=== PATIENT | male | born 1960 | race Caucasian/White ===

== ENCOUNTER 2020-09-18 11:22 | Emergency (ER) | payer SELFPAY ==
--- NOTE | 2020-09-18 11:25 | EDM.PDOC ---
ED HPI GENERAL MEDICAL PROBLEM - General Stated Complaint: BLADDER DRAIN Time Seen by Provider: 09/18/20 11:22 Source of Information: Reports: Patient History Limitations: Reports: No Limitations - History of Present Illness INITIAL COMMENTS - FREE TEXT/NARRATIVE: 59-year-old male presents from [facility] for urinary retention. Per report from Dr. Guzman, patient has noted decreased urination, dribbling, difficulty voiding x1 week. In the clinic he was noted to have a distended abdomen and a bladder scan showed greater than 1000 mL in the bladder. Rectal exam revealed a nodular enlarged prostate concerning for prostate cancer. Patient was sent to the emergency department for urinary retention. On my history, patient notes that he has not urinated and roughly 5 days. He has had a lot of dribbling urine and has been wearing depends diapers. He notes abdominal distention and a lot of pain, discomfort. He denies any fevers, nausea, vomiting. Back Pain Score (Numeric/FACES): 5 - Related Data Allergies Allergy/AdvReac Type Severity Reaction Status Date / Time No Known Allergies Allergy Verified 09/18/20 11:53 Home Meds: Home Meds . [No Known Home Meds] 04/09/18 [History] Past Medical History HEENT History: Reports: None Respiratory History: Reports: Asthma Gastrointestinal History: Reports: None Genitourinary History: Reports: None Musculoskeletal History: Reports: None Neurological History: Reports: None Psychiatric History: Reports: None Endocrine/Metabolic History: Reports: None Hematologic History: Reports: None Dermatologic History: Reports: None - Past Surgical History Male Surgical History: Reports: None Social & Family History - Family History Family Medical History: No Pertinent Family History ED ROS GENERAL - Review of Systems Review Of Systems: Comprehensive ROS is negative, except as noted in HPI. ED EXAM, GENERAL - Physical Exam Exam: See Below Exam Limited By: No Limitations General Appearance: Alert, WD/WN, No Apparent Distress Throat/Mouth: Normal Voice, No Airway Compromise, Perioral Cyanosis Head: Atraumatic Neck: Normal Inspection Respiratory/Chest: No Respiratory Distress, Lungs Clear, Normal Breath Sounds, No Accessory Muscle Use Cardiovascular: Normal Peripheral Pulses, Regular Rate, Rhythm GI/Abdominal: Other (distended, TTP consistent with distended bladder) Extremities: Normal Inspection Neurological: Alert Psychiatric: Normal Affect, Normal Mood Skin Exam: Warm, Dry, Intact, Normal Color Course - Vital Signs Last Recorded V/S: Last Vital Signs Temp 97.3 F 09/18/20 11:53 Pulse 70 09/18/20 11:53 Resp BP 188/80 H 09/18/20 11:53 Pulse Ox 96 09/18/20 11:53 - Orders/Labs/Meds Orders: Active Orders 24 hr Category Date Time Status Insert Simmons Catheter [Insert Urinary Catheter] [OM.PC] Care 09/18/20 11:30 Ordered Q24H Urinary Catheter Assessment [RC] ASDIRECTED Care 09/18/20 11:24 Active Labs: Laboratory Tests 09/18/20 09/18/20 09/18/20 Range/Units 11:55 12:15 12:15 WBC 12.34 H (4.0-11.0) K/uL RBC 4.59 (4.50-5.90) M/uL Hgb 14.3 (13.0-17.0) g/dL Hct 41.6 (38.0-50.0) % MCV 90.6 (80.0-98.0) fL MCH 31.2 (27.0-32.0) pg MCHC 34.4 (31.0-37.0) g/dL RDW Std Deviation 43.5 (28.0-62.0) fl RDW Coeff of Maxi 13 (11.0-15.0) % Plt Count 247 (150-400) K/uL MPV 10.10 (7.40-12.00) fL Neut % (Auto) 78.0 (48.0-80.0) % Lymph % (Auto) 11.5 L (16.0-40.0) % [place] % (Auto) 9.0 (0.0-15.0) % Eos % (Auto) 1.3 (0.0-7.0) % Baso % (Auto) 0.2 (0.0-1.5) % Neut # (Auto) 9.6 H (1.4-5.7) K/uL Lymph # (Auto) 1.4 (0.6-2.4) K/uL [place] # (Auto) 1.1 H (0.0-0.8) K/uL Eos # (Auto) 0.2 (0.0-0.7) K/uL Baso # (Auto) 0.0 (0.0-0.1) K/uL Nucleated RBC % 0.0 /100WBC Nucleated RBCs # 0 K/uL Sodium 139 (136-148) mmol/L Potassium 2.8 L (3.5-5.1) mmol/L Chloride 99 (98-107) mmol/L Carbon Dioxide 26.1 (21.0-32.0) mmol/L BUN 45 H (7.0-18.0) mg/dL Creatinine 2.0 H (0.8-1.3) mg/dL Est Cr Clr Drug Dosing 36.26 mL/min Estimated GFR (MDRD) 34.1 ml/min Glucose 117 H (74-106) mg/dL Calcium 8.7 (8.5-10.1) mg/dL Prostate Specific Ag 5.76 H (0.05-4.00) ng/mL Urine Color YELLOW Urine Appearance CLEAR Urine pH 5.5 (5.0-8.0) Ur Specific Cornish 1.020 (1.001-1.035) Urine Protein NEGATIVE (NEGATIVE) mg/dL Urine Glucose (UA) NEGATIVE (NEGATIVE) mg/dL Urine Ketones NEGATIVE (NEGATIVE) mg/dL Urine Occult Blood MODERATE H (NEGATIVE) Urine Nitrite NEGATIVE (NEGATIVE) Urine Bilirubin NEGATIVE (NEGATIVE) Urine Urobilinogen 0.2 (<2.0) EU/dL Ur Leukocyte Esterase TRACE H (NEGATIVE) Urine RBC 4-6 (0-2/HPF) Urine WBC 0-2 (0-5/HPF) Ur Epithelial Cells FEW (NONE-FEW) Amorphous Sediment LIGHT (NEGATIVE) Urine Bacteria FEW (NEGATIVE) Urine Mucus LIGHT (NONE-MOD) - Re-Assessments/Exams Free Text/Narrative Re-Assessment/Exam: 09/18/20 12:[address] Simmons catheter. Will check urinalysis, will check renal function. Will do a screening PSA but informed patient that he will need to follow-up with urologist for further work-up and to rule out prostate cancer. 09/18/20 12:24 Urine with positive leuk esterase but only 0-2 white blood cells, will defer antibiotics at this time although culture will be sent. Patient had large amount of drainage from Simmons catheter, drained 500 mL immediately and then the bag was clamped. Will drain the rest of the urine, follow-up blood labs. 09/18/20 13:15 Patient's labs reveal a creatinine of 2, otherwise unremarkable. PSA is mildly elevated. Will discharge patient with Simmons leg bag and follow-up with urology. Departure - Departure Time of Disposition: 13:16 Disposition: Home, Self-Care 01 Condition: Good Clinical Impression: Urinary retention - Discharge Information Instructions: Indwelling Urinary Catheter Care, Adult, Acute Urinary Retention, Male Referrals: Peter Valdes MD [Primary Care Provider] - Additional Instructions: You presented to the emergency department with urinary retention. A Simmons catheter was placed which will help to allow your bladder to drain. Most causes of urinary retention in men are caused by problems with the prostate gland. Usually this is due to benign prostatic hypertrophy or BPH which is enlargement of the prostate without evidence of cancer. Sometimes this can be caused by prostate cancer. You will need to follow-up with the urologist early next week to have the Simmons catheter removed and to be better evaluated for prostate cancer. A screening lab was sent for prostate cancer called a PSA level. All the labs done today are provided in your discharge paperwork and you should share these with the urologist when you follow-up. Your labs did not show evidence of a urinary tract infection however the urine will be sent for culturing in case there is a pathogen that is missed on our urinalysis test. The following information is given to patients seen in the emergency department who are being discharged to home. This information is to outline your options for follow-up care. We provide all patients seen in our emergency department with a follow-up referral. The need for follow-up, as well as the timing and circumstances, are variable depending upon the specifics of your emergency department visit. If you don't have a primary care physician on staff, we will provide you with a referral. We always advise you to contact your personal physician following an emergency department visit to inform them of the circumstance of the visit and for follow-up with them and/or the need for any referrals to a consulting specialist. The emergency department will also refer you to a specialist when appropriate. This referral assures that you have the opportunity for follow-up care with a specialist. All of these measure are taken in an effort to provide you with optimal care, which includes your follow-up. Under all circumstances we always encourage you to contact your private physician who remains a resource for coordinating your care. When calling for follow-up care, please make the office aware that this follow-up is from your recent emergency room visit. If for any reason you are refused follow-up, please contact the [facility] Emergency Department at and asked to speak to the emergency department charge nurse. Please follow up with your primary care physician. If you do not have a primary care physician, see below: [facility] [address] [place] [id number] [facility] [address] [place] [address] [facility] [address] [place] [address] Sepsis Event Note (ED) - Focused Exam Vital Signs: Vital Signs Temp Pulse BP Pulse Ox 09/18/20 11:53 97.3 F 70 188/80 H 96 - My Orders Last 24 Hours: My Active Orders 09/18/20 11:24 Urinary Catheter Assessment [RC] ASDIRECTED 09/18/20 11:30 Insert Simmons Catheter [Insert Urinary Catheter] [OM.PC] Q24H - Assessment/Plan Last 24 Hours: My Active Orders 09/18/20 11:24 Urinary Catheter Assessment [RC] ASDIRECTED 09/18/20 11:30 Insert Simmons Catheter [Insert Urinary Catheter] [OM.PC] Q24H
[2020-09-18 13:13] LABS: CARBON DIOXIDE,CO2 26.1 mmol/L (21.0-32.0); POTASSIUM,K 2.8 mmol/L (3.5-5.1)
== END 2020-09-18 13:43 | disposition home or self-care (01) ==
LOC: MW.ED 11:22
DX: R33.9 Retention of urine, unspecified (principal); J45.909 Unspecified asthma, uncomplicated
CPT/HCPCS: 36415; 51702; 80048; 81001; 84153; 85025; 99283; 99283-25

== ENCOUNTER 2021-06-16 19:36 | Emergency (ER) | payer SELFPAY ==
--- NOTE | 2021-06-16 20:27 | EDM.PDOC ---
ED HPI GENERAL MEDICAL PROBLEM - General Chief Complaint: Genitourinary Problem Stated Complaint: NEW CATHETER, BLOOD IN URINE Time Seen by Provider: 06/16/21 20:01 - History of Present Illness INITIAL COMMENTS - FREE TEXT/NARRATIVE: CHIEF COMPLAINT(S): Blood in urine HISTORY OF PRESENT ILLNESS: This is a 60-year-old man with a chronic Harrington catheter secondary to BPH who comes to the emergency department with a chief complaint of blood in urine. The patient states that he does not have any pain or fevers but yesterday he had his catheter changed at [facility] and since that time he has been draining blood. He states that it initially looked like tomato sauce and now it is turned into a wine color. He states that it has not cleared. He states that he feels like he has to go to the restroom but he cannot. He states that he did pass some clots. He denies any back pain, nausea or vomiting. States this is never happened before. REVIEW OF SYSTEMS: Constitutional: Denies fever, chills. Eyes: Denies eye pain Ears, Nose, Mouth, & Throat: Denies earache Cardiovascular: Denies chest pain Respiratory: Denies shortness of breath Gastrointestinal: Denies Nausea, vomiting, diarrhea, hematochezia. Genitourinary: Positive for hematuria and increased urgency Skin:Denies a rash MSK: Denies joint pain Neurological: Denies blurred vision Psychiatric: Denies depression PAST MEDICAL HISTORY: As per history of present illness and as reviewed below otherwise noncontributory. SURGICAL HISTORY: As per history of present illness and as reviewed below otherwise noncontributory. SOCIAL HISTORY: As per history of present illness and as reviewed below otherwise noncontributory. FAMILY HISTORY: As per history of present illness and as reviewed below otherwise noncontributory. EXAMINATION OF ORGAN SYSTEMS/BODY AREAS: Constitutional: Blood pressure is 199/93, heart rate 92, respiratory rate 20 with an oxygen saturation of 96% on room air. Temperature 36.0 General: Middle-aged man who does not appear to be in acute distress Psychiatric: Appropriate mood and affect. Eyes: No scleral icterus or conjunctival erythema ENMT: Moist mucous membranes. No pharyngeal erythema Cardiovascular: Regular, rate, and rhythm. No gallops, murmurs, or rubs. Respiratory: Lungs clear to auscultation bilaterally. No wheezes, rales, or rhonchi. Gastrointestinal: Soft, non-tender, non-distended. Normoactive bowel sounds Genitourinary: Hard to assess any distention however no masses can be palpated. No suprapubic tenderness. The Harrington catheter is in place with bloody drainage. No obvious clots. Musculoskeletal: Normal range of motion. Skin: No lesions or abrasions. Neurological: Alert, GCS 15 MEDICAL DECISION MAKING AND COURSE IN THE ED WITH INTERPRETATION/REVIEW OF DIAGNOSTIC STUDIES: This is a 60-year-old man with a past medical history of BPH with chronic indwelling Harrington catheter who comes to the emergency department with bloody urine after a catheter change. I do believe this is a traumatic insertion however at this time we will obtain a bedside bladder scan to evaluate for any urine in the bladder. If there is signs of retention I do believe there is likely a clot causing this retention we will perform catheter flushing and evaluate if we can clear the urine. Laboratory: CBC reveals a normocytic anemia with a hemoglobin of 12.4 and hematocrit of 37.2. BMP is unremarkable. We were able to irrigate the bladder and a couple of clots did come out however the urine did end up being clear. At this time I do not believe any further work-up is indicated. I did discuss with patient that if he felt the sensation that there was any more clots and he was unable to urinate to return to the emergency department. Otherwise he should follow-up with his urologist for continued evaluation. He was amenable discharge and had no further questions. DISPOSITION: The patient was discharged home in stable condition. The patient will follow up with his urologist CONDITION: Fair PROCEDURES: None FINAL IMPRESSION(S)/DIAGNOSES: 1. Acute hematuria likely secondary to traumatic Harrington 2. Acute urinary retention likely secondary to clot secondary to #1 Carmelo Wyatt M.D. Abdomen Pain Score (Numeric/FACES): 7 - Related Data Allergies Allergy/AdvReac Type Severity Reaction Status Date / Time No Known Allergies Allergy Verified 06/16/21 19:50 Home Meds: Home Meds Finasteride [Proscar] 5 mg PO 06/16/21 [History] Past Medical History HEENT History: Reports: None Cardiovascular History: Reports: Hypertension Respiratory History: Reports: Asthma Gastrointestinal History: Reports: None Genitourinary History: Reports: None Musculoskeletal History: Reports: None, Other (See Below) Other Musculoskeletal History: scoliosis Neurological History: Reports: None Psychiatric History: Reports: Anxiety, Depression Other Psychiatric History: some anxiety and depression occasionally Endocrine/Metabolic History: Reports: None Hematologic History: Reports: None Immunologic History: Reports: None Oncologic (Cancer) History: Reports: None Dermatologic History: Reports: None - Infectious Disease History Infectious Disease History: Reports: Chicken Pox, Mumps - Past Surgical History Head Surgeries/Procedures: Reports: None Male Surgical History: Reports: None Oncologic Surgical History: Reports: None Social & Family History - Family History Family Medical History: No Pertinent Family History - Tobacco Use Second Hand Smoke Exposure: No - Caffeine Use Caffeine Use: Reports: None - Recreational Drug Use Recreational Drug Use: Yes Drug Use in Last 12 Months: Yes Recreational Drug Type: Reports: Marijuana/Hashish ED ROS GENERAL - Review of Systems Review Of Systems: See Below ED EXAM, GENERAL - Physical Exam Exam: See Below Course - Vital Signs Last Recorded V/S: Last Vital Signs Temp 36.2 C 06/16/21 22:00 Pulse 84 06/16/21 22:00 Resp 18 06/16/21 22:00 BP 154/86 H 06/16/21 22:00 Pulse Ox 97 06/16/21 22:00 - Orders/Labs/Meds Labs: Laboratory Tests 06/16/21 06/16/21 Range/Units 21:13 21:13 WBC 7.67 (4.0-11.0) K/uL RBC 4.12 L (4.50-5.90) M/uL Hgb 12.4 L (13.0-17.0) g/dL Hct 37.2 L (38.0-50.0) % MCV 90.3 (80.0-98.0) fL MCH 30.1 (27.0-32.0) pg MCHC 33.3 (31.0-37.0) g/dL RDW Std Deviation 44.4 (28.0-62.0) fl RDW Coeff of Maxi 14 (11.0-15.0) % Plt Count 210 (150-400) K/uL MPV 9.50 (7.40-12.00) fL Neut % (Auto) 67.6 (48.0-80.0) % Lymph % (Auto) 19.2 (16.0-40.0) % [place] % (Auto) 12.6 (0.0-15.0) % Eos % (Auto) 0.3 (0.0-7.0) % Baso % (Auto) 0.3 (0.0-1.5) % Neut # (Auto) 5.2 (1.4-5.7) K/uL Lymph # (Auto) 1.5 (0.6-2.4) K/uL [place] # (Auto) 1.0 H (0.0-0.8) K/uL Eos # (Auto) 0.0 (0.0-0.7) K/uL Baso # (Auto) 0.0 (0.0-0.1) K/uL Nucleated RBC % 0.0 /100WBC Nucleated RBCs # 0 K/uL Sodium 138 (136-148) mmol/L Potassium 3.5 (3.5-5.1) mmol/L Chloride 101 (98-107) mmol/L Carbon Dioxide 28.4 (21.0-32.0) mmol/L BUN 20 H (7.0-18.0) mg/dL Creatinine 0.9 (0.8-1.3) mg/dL Est Cr Clr Drug Dosing 79.56 mL/min Estimated GFR (MDRD) > 60.0 ml/min Glucose 101 (74-106) mg/dL Calcium 8.8 (8.5-10.1) mg/dL Departure - Departure Time of Disposition: 21:53 Disposition: Home, Self-Care 01 Condition: Fair Clinical Impression: Harrington catheter problem, Hematuria - Discharge Information *PRESCRIPTION DRUG MONITORING PROGRAM REVIEWED*: No *COPY OF PRESCRIPTION DRUG MONITORING REPORT IN PATIENT CHAYITO: No Instructions: Indwelling Urinary Catheter Care, Adult, Hematuria, Adult Referrals: Peter Valdes MD [Primary Care Provider] - Forms: ED Department Discharge Additional Instructions: You were evaluated today on an emergent basis. At this time I do believe you experience a traumatic Harrington which caused some bleeding. We were able to clear out some of the clots in the Harrington catheter and the urine did clear up. He still have a small amount of blood in your urine and as long as your urine continues to clear, you do not have any worsening sensation or decreased output like you had today I would like you to follow-up with your urologist and if any of the symptoms do happen I would like you to return here in the emergency department. [facility] [place], [place] [phone] *When you call for an appointment say "I was seen in the ER in [place] and I had my harrington irrigated due to blood from a traumatic harrington insertion, I am calling for a follow up with Dr. Alatorre." [facility] [address] [place] [address] [id number] [facility] [address] [place] [id number] The patient is informed of any results of their evaluation and diagnostic workup and all questions are answered. They are given discharge instructions and return precautions. The patient is stable for discharge. The patient states they understand and agree with the plan and that they will return if their symptoms get worse or if they have any new concerns. The following information is given to patients seen in the emergency department who are being discharged to home. This information is to outline your options for follow-up care. We provide all patients seen in our emergency department with a follow-up referral. The need for follow-up, as well as the timing and circumstances, are variable depending upon the specifics of your emergency department visit. If you don't have a primary care physician on staff, we will provide you with a referral. We always advise you to contact your personal physician following an emergency department visit to inform them of the circumstance of the visit and for follow-up with them and/or the need for any referrals to a consulting specialist. The emergency department will also refer you to a specialist when appropriate. This referral assures that you have the opportunity for follow-up care with a specialist. All of these measure are taken in an effort to provide you with optimal care, which includes your follow-up. Under all circumstances we always encourage you to contact your private physician who remains a resource for coordinating your care. When calling for follow-up care, please make the office aware that this follow-up is from your recent emergency room visit. If for any reason you are refused follow-up, please contact the [facility] Emergency Department at and asked to speak to the emergency department charge nurse.
[2021-06-16 21:34] LABS: BLOOD UREA NITROGEN,BUN 20 mg/dL (7.0-18.0); CARBON DIOXIDE,CO2 28.4 mmol/L (21.0-32.0); CHLORIDE,CL 101 mmol/L (98-107); GLUCOSE RANDOM 101 mg/dL (74-106); POTASSIUM,K 3.5 mmol/L (3.5-5.1); SODIUM,NA 138 mmol/L (136-148)
== END 2021-06-16 22:03 | disposition home or self-care (01) ==
LOC: MW.ED 19:36
DX: T83.091A Other mechanical complication of indwelling urethral catheter, initial encounter (principal); R31.9 Hematuria, unspecified; R33.9 Retention of urine, unspecified; I10 Essential (primary) hypertension
CPT/HCPCS: 36415; 80048; 85025; 99284-25

== ENCOUNTER 2021-08-18 19:04 | Emergency (ER) | payer SELFPAY ==
[2021-08-18] MEDS: Sulfamethoxazole/Trimethoprim 800-160 MG Tab PO ONE (20:44)
== END 2021-08-18 20:49 | disposition home or self-care (01) ==
LOC: MW.ED 19:04
DX: T83.511A Infection and inflammatory reaction due to indwelling urethral catheter, initial encounter (principal); N39.0 Urinary tract infection, site not specified; I10 Essential (primary) hypertension
CPT/HCPCS: 51702; 81001; 87086; 99283; A9270; 87088; 87186

== ENCOUNTER 2021-10-25 02:27 | Emergency (ER) | payer SELFPAY | END 2021-10-25 03:20 | disposition home or self-care (01) | LOC: MW.ED 02:27 | DX: T83.098A Other mechanical complication of other urinary catheter, initial encounter (principal); N40.0 Benign prostatic hyperplasia without lower urinary tract symptoms | CPT/HCPCS: 51702; 81001; 87086; 99284-25 ==

== ENCOUNTER 2023-01-06 12:42 | Emergency (ER) | payer SELFPAY ==
[2023-01-06] MEDS ORDERED: Sodium Chloride 0.9% 10 ML Syringe FLUSH PRN (13:59)
[2023-01-06] MEDS ORDERED: Sodium Chloride 0.9% 2.5 ML Syringe FLUSH PRN (13:59)
[2023-01-06] MEDS ORDERED: fentaNYL 50 MCG/ML SDV IVPUSH STA (14:00)
[2023-01-06 14:22] LABS: BASOPHILS PERCENT AUTO 0.2 % (0.0-1.5); EOSINOPHILS PERCENT AUTO 0.1 % (0.0-7.0); HEMATOCRIT 45.1 % (38.0-50.0); HEMOGLOBIN 15.4 g/dL (13.0-17.0); LYMPHOCYTES ABSOLUTE AUTO 1.7 K/uL (0.6-2.4); LYMPHOCYTES PERCENT AUTO 9.8 % (16.0-40.0); MEAN CORPUSCULAR HEMOGLOBIN 29.4 pg (27.0-32.0); MEAN CORPUSCULAR HGB CONC 34.1 g/dL (31.0-37.0); MEAN CORPUSCULAR VOLUME 86.1 fL (80.0-98.0); MONOCYTES ABSOLUTE AUTO 1.2 K/uL (0.0-0.8); MONOCYTES PERCENT AUTO 7.1 % (0.0-15.0); NEUTROPHILS ABSOLUTE AUTO 14.4 K/uL (1.4-5.7); NEUTROPHILS PERCENT AUTO 82.8 % (48.0-80.0); NRBC ABSOLUTE 0 K/uL; PLATELET COUNT,PLT 307 K/uL (150-400); RED BLOOD CELL COUNT 5.24 M/uL (4.50-5.90); WHITE BLOOD CELL COUNT,WBC 17.38 K/uL (4.0-11.0)
[2023-01-06] MEDS ORDERED: HYDROmorphone 1 MG/ML Syringe IVPUSH STA (14:35)
[2023-01-06 14:36] LABS: CALCIUM 9.7 mg/dL (8.5-10.1); CARBON DIOXIDE,CO2 21.3 mmol/L (21.0-32.0); CREATININE 1.2 mg/dL (0.8-1.3); EST CRCL DRUG DOSING (CG) 58.14 mL/min
[2023-01-06] MEDS ORDERED: Iopamidol 755 MG/ML 500 ML Multipack Bottle IVPUSH STA (16:28)
== END 2023-01-06 20:46 | disposition home or self-care (01) ==
LOC: MW.ED 12:42
DX: T83.098A Other mechanical complication of other urinary catheter, initial encounter (principal); N30.90 Cystitis, unspecified without hematuria; I10 Essential (primary) hypertension; J45.909 Unspecified asthma, uncomplicated; Z79.899 Other long term (current) drug therapy
CPT/HCPCS: 36415; 74177; 80048; 85025; 96374; 96375; 99284; J1170; J3010; J3490; Q9967

== ENCOUNTER 2024-07-02 09:22 | Day surgery (SDC) | payer MEDICARE ==
[~2024-07-02 09:22] MED LIST: Sodium Chloride 0.9% 10 ML Syringe FLUSH PRN; Sodium Chloride 0.9% 2.5 ML Syringe FLUSH PRN; Sodium Chloride 0.9% 20 ML SDV IV PRN
[2024-07-02] MEDS ORDERED: Lidocaine 2% 5 ML SDV ONE (09:44)
[2024-07-02] MEDS ORDERED: propofoL 500 MG/50 ML 50 ML ONE (09:44)
[2024-07-02] MEDS: Lactated Ringers 1,000 ML IV SCH (09:45)
== END 2024-07-02 11:42 | disposition home or self-care (01) ==
LOC: MW.SDS 09:22
PROVIDERS: ATTEND Surgery
DX: D12.2 Benign neoplasm of ascending colon (principal); D12.3 Benign neoplasm of transverse colon; D12.4 Benign neoplasm of descending colon; D12.5 Benign neoplasm of sigmoid colon; K21.00 Gastro-esophageal reflux disease with esophagitis, without bleeding; K57.30 Diverticulosis of large intestine without perforation or abscess without bleeding; N40.1 Benign prostatic hyperplasia with lower urinary tract symptoms; J45.909 Unspecified asthma, uncomplicated; R63.4 Abnormal weight loss; K43.2 Incisional hernia without obstruction or gangrene
CPT/HCPCS: 43239; 45380; 45385; J2704; J7120; 00813; 88305; J3490